=== PATIENT | male | born 1985 | race Two or more races ===

== ENCOUNTER 2017-10-09 12:06 | Emergency (ER) | payer OTHER ==
[~2017-10-09] VITALS: Ht 167.6 cm; Wt 80.0 kg
[2017-10-09 12:24] VITALS: BP 140/92; PULSE 71; RESP 17; TEMP 98.6; O2SAT 100
[2017-10-09] MEDS ORDERED: CYCL10TA PO (12:58)
[2017-10-09] MEDS ORDERED: IBUP1TAB7 PO (12:58)
[2017-10-09] MEDS ORDERED: TRAM50TA PO (12:58)
[2017-10-09] MEDS ORDERED: KETOROLAC TROMETHAMINE 60 MG/2 ML (IM) VIAL IM ONE (13:00)
[2017-10-09] MEDS ORDERED: ORPHENADRINE INJ 60 MG/2 ML AMP IM ONE (13:00)
--- NOTE | 2017-10-09 13:02 | PD ---
HPI Chief Complaint: Back/ Neck Pain or Injury Time Seen by Provider: 12:39 Travel History International Travel<30 days: No Contact w/Intl Traveler<30days: No Traveled to known affect area: No History of Present Illness HPI 32-year-old male presents emergency department with pain in the lower thoracic back, for the past 2 weeks. Patient states it started while moving furniture for his mother. He remember specifically moving a refrigerator when he felt a "pinch in his back" which is continued to worsen over the past 2 weeks. Patient denies fever, chills, cough, abdominal pain, or urinary symptoms. Patient states he has tried heat, ice, Tylenol, and Aleve without improvement. Patient states it was so bad last evening he could not sleep. Pain currently is an 8 out of 10 and worse with movement. He has no pleuritic pain. He has no known drug allergies. PFSH Past Medical History Medical History: Denies Significant Hx Tetanus Vaccination: < 5 Years Past Surgical History Surgical History: No Previous Surgery Social History Alcohol Use: No Tobacco Use: No Substance Use: No Allergies-Medications (Allergen,Severity, Reaction): Coded Allergies: No Known Allergies (Unverified , 10/09/17) Reported Meds & Prescriptions Reported Meds & Active Scripts Active Tramadol (Tramadol HCl) 50 Mg Tab 50 Mg PO Q6H PRN Flexeril (Cyclobenzaprine HCl) 10 Mg Tab 10 Mg PO TID Ibuprofen 800 Mg Tab 800 Mg PO Q8H PRN Review of Systems Except as stated in HPI: all other systems reviewed are Neg General / Constitutional: No: Fever Eyes: No: Visual changes HENT: No: Headaches Cardiovascular: No: Chest Pain or Discomfort Respiratory: No: Shortness of Breath Gastrointestinal: No: Abdominal Pain Genitourinary: No: Dysuria Musculoskeletal: Positive: Myalgias, Arthralgias, Limited ROM, Pain Skin: No Rash Neurologic: No: Weakness Psychiatric: No: Depression Endocrine: No: Polydipsia Hematologic/Lymphatic: No: Easy Bruising Physical Exam Narrative GENERAL: Patient appears in mild to moderate distress. SKIN: Warm and dry. Normal color. Normal turgor. HEAD: Atraumatic. Normocephalic. EYES: Pupils equal and round. No scleral icterus. No injection or drainage. ENT: No nasal bleeding or discharge. Mucous membranes pink and moist. Pharynx is clear. NECK: Trachea midline. Supple and nontender. CARDIOVASCULAR: Regular rate and rhythm. RESPIRATORY: No accessory muscle use. Clear to auscultation. Breath sounds equal bilaterally. GASTROINTESTINAL: Abdomen soft, non-tender, nondistended. Hepatic and splenic margins not palpable. MUSCULOSKELETAL: Extremities without clubbing, cyanosis, or edema. No obvious deformities. Patient has no specific bony point tenderness in the thoracic spine, however he does have soft tissues tenderness and spasm bilaterally in the lower thoracic/upper lumbar region. He has no sciatic signs. NEUROLOGICAL: Awake and alert. No obvious cranial nerve deficits. Motor grossly within normal limits. Five out of 5 muscle strength in the arms and legs. Normal speech. PSYCHIATRIC: Appropriate mood and affect; insight and judgment normal. Data Data Last Documented VS Vital Signs Date Time Temp Pulse Resp B/P (MAP) Pulse Ox O2 Delivery O2 Flow Rate FiO2 10/09/17 12:24 98.6 71 17 140/92 (108) 100 Orders Orders Ketorolac Inj (Toradol Inj) (10/09/17 13:00) Orphenadrine Inj (Norflex Inj) (10/09/17 13:00) MDM Medical Decision Making Medical Screen Exam Complete: Yes Emergency Medical Condition: Yes Differential Diagnosis Thoracic strain. Back pain. Muscle spasm. Narrative Course Patient is felt to have a muscle strain of the lower thoracic spine. He is given Toradol 60 mg IM as well as Norflex 60 mg IM. He will be continued on ibuprofen 800 mg 3 times daily with food #30. Patient also given Flexeril to be taken up to 3 times daily for muscle spasm # 20. Patient is given tramadol 50 mg up to 4 times daily as needed pain #20. Patient is to use heat, ice, and stretching as discussed. Patient to follow-up if symptoms do not improve or worsen. Diagnosis Primary Impression: Strain of muscle and tendon of back wall of thorax, initial encounter Patient Instructions: General Instructions, Thoracic Back Strain (ED), Upper Back Exercises (GEN) Additional Instructions: Patient is felt to have a muscle strain of the lower thoracic spine. He is given Toradol 60 mg IM as well as Norflex 60 mg IM. He will be continued on ibuprofen 800 mg 3 times daily with food #30. Patient also given Flexeril to be taken up to 3 times daily for muscle spasm # 20. Patient is given tramadol 50 mg up to 4 times daily as needed pain #20. Patient is to use heat, ice, and stretching as discussed. Patient to follow-up if symptoms do not improve or worsen. Med/Other Pt SpecificInfo: Prescription(s) given Scripts Tramadol (Tramadol) 50 Mg Tab 50 MG PO Q6H Y for PAIN, #20 TAB 0 Refills Prov: Ananth Mirza MD 10/09/17 Cyclobenzaprine (Flexeril) 10 Mg Tab 10 MG PO TID for Muscle Spasm, #20 TAB 0 Refills Prov: Ananth Mirza MD 10/09/17 Ibuprofen (Ibuprofen) 800 Mg Tab 800 MG PO Q8H Y for Pain/Inflammation, #30 TAB 0 Refills Prov: Ananth Mirza MD 10/09/17 Catalino Gutierrez Oct 09, 2017 13:02
== END 2017-10-09 13:26 | disposition home or self-care (01) ==
LOC: NEPK 12:06
DX: S29.012A Strain of muscle and tendon of back wall of thorax, initial encounter (principal); X50.0XXA Overexertion from strenuous movement or load, initial encounter
CPT/HCPCS: 96372; 99284; J1885; J2360